=== PATIENT | male | born 1965 | race Caucasian/White ===

== ENCOUNTER → 2019-01-02 | Emergency (ER) | payer OTHER ==
[~2019-01-02] VITALS: Ht 172.7 cm; Wt 68.0 kg
[~2019-01-02] MED LIST: INDAPAMIDE1.25 MG PO; LOTREL 5-20 MG1 CAP PO
== END | disposition left against medical advice (07) ==
LOC: ER 21:41
DX: Z53.20 Procedure and treatment not carried out because of patient's decision for unspecified reasons (principal)

== ENCOUNTER 2025-01-13 23:51 | Emergency (ER) | payer OTHER ==
[~2025-01-13] VITALS: Ht 172.7 cm; Wt 65.8 kg
[2025-01-14] MEDS ORDERED: LEVALBUTEROL HCL 0.63 MG/3 ML SOLUTION IH SCH ×2 (00:45→09:54)
[2025-01-14] MEDS ORDERED: LEVALBUTEROL HCL 0.63 MG/3 ML SOLUTION IH ONE ×3 (00:45→15:17)
[2025-01-14] MEDS ORDERED: 0.9 % SODIUM CHLORIDE 1,000 ML IV ONE (00:45)
[2025-01-14] MEDS ORDERED: METHYLPREDNISOLONE SOD SUCC 125 MG VIAL IV STA (00:45)
[2025-01-14] MEDS ORDERED: METHYLPREDNISOLONE SOD SUCC 125 MG VIAL ONE (00:59)
[2025-01-14 01:05] LABS: BASO % 0.2 % (0.1-1.2); EOS # 0.00 (0.04-0.54); EOS % 0.0 % (0.7-7.0); LYMPH # 79.62 (1.18-3.74); LYMPH % 96.9 % (19.3-53.1); MEAN PLATELET VOLUME 12.20 fl (9.4-12.4); MONO # 0.93 (0.24-0.82); MONO % 1.1 % (4.7-12.5); NEUT # 1.43 (1.56-6.13); NEUT % 1.8 % (34.0-71.1); RED CELL DISTRIBUTION WIDTH 17.6 % (11.6-14.4)
[2025-01-14 01:33] LABS: ALT/SGPT 23.0 U/L (12-78); AST/SGOT 52.0 U/L (15-37); BILIRUBIN TOTAL 0.82 mg/dL (0.3-1.2); BUN CREA RATIO 28.0 (7.0-25.0); CREATININE SERUM 1.33 mg/dL (0.70-1.30); GFR 55.22; GLOBULINA 7.0 G/DL (2.4-3.5); OSMOLALITY SERUM 273.0 MOSM/KG (275-295)
[2025-01-14 01:52] LABS: GLUCOSE FASTING 224.0 mg/dL (65-100)
[2025-01-14 02:04] LABS: LYMPHOCYTE MAN 83.0 %; MONOCYTE MAN 3.0 %; NEUTROPHILS MAN 4.0 %
[2025-01-14 02:12] LABS: URINE APPEARANCE Clear; URINE BILIRRUBIN Negative (NEGATIVE); URINE BLOOD Moderate; URINE COLOR Yellow; URINE GLUCOSE Negative (NEGATIVE); URINE KETONE Negative (NEGATIVE); URINE LEUKOCYTE Negative; URINE NITRATE Negative; URINE UROBILINOGEN 1.0 E.U./dl
[2025-01-14 02:15] LABS: URINE BACTERIA 13.7 uL (0.0-1933); URINE CAST 3.25 uL (0.0-1.40); URINE EPITHELIAL CELLS 18.7 uL (0.0-38.8); URINE WBC 3.6 uL (0.0-23.2)
[2025-01-14 02:32] LABS: COVID-19 AG NEGATIVE (NEGATIVE)
[2025-01-14 02:34] LABS: TYPE CELLS SQUAMOUS; URINE PROTEIN 100 (NEGATIVE); URINE RBC 1.2 uL (0.0-20.8)
[2025-01-14 02:35] LABS: URINE MUCUS NEGATIVE
[2025-01-14] MEDS ORDERED: OSELTAMIVIR PHOSPHATE 75 MG CAPSULE PO SCH (09:55)
[2025-01-14] MEDS ORDERED: OSELTAMIVIR PHOSPHATE 75 MG CAPSULE PO ONE (10:19)
[2025-01-14] MEDS ORDERED: PIPERACILLIN/TAZOBACTAM SODIUM 3.375 GM VIAL IV STA (12:53)
[2025-01-14] MEDS ORDERED: PIPERACILLIN/TAZOBACTAM SODIUM 3.375 GM VIAL IV ONE (14:33)
== END 2025-01-14 21:27 | disposition designated cancer center or children's hospital (05) ==
LOC: ER 23:52
PROVIDERS: General Practice
DX: J10.1 Influenza due to other identified influenza virus with other respiratory manifestations (principal); R06.02 Shortness of breath; R50.9 Fever, unspecified; Z91.018 Allergy to other foods; Z20.822 Contact with and (suspected) exposure to COVID-19; D64.89 Other specified anemias
CPT/HCPCS: 36415; 71045; 82803; 93005; 94640; 96365; 96366; 99285; J3490; J7030